=== PATIENT | male | born 1935 | race Caucasian/White ===

== ENCOUNTER → 2017-02-13 | Outpatient (CLI) | payer MEDICARE ==
[~2017-02-13] MED LIST: ARICEPT 5 MG TAB5 MG PO; ARICEPT10 M1 PO; ASPIR 8181 MG PO; ASPIRIN325 PO; ATORVASTATIN CA40 MG PO; CYMBALTA20 MG PO; FLOMAX0.4 MG PO; IRON PO; IRON325 M1 PO; MELATONIN3 MG PO; NAMENDA 10 MG T10 MG PO; NAMENDA XR28 MG PO; PRILOSEC20 MG PO; TOPROL XL50 MG PO; UNKNOWN INHALER INH; VITAMIN B-122500 MCG PO; VITAMIN B-12500 MCG PO; VITAMIN D2000 UNI1 PO; ZOFRAN ODT4 MG PO; ZOLOFT100 MG PO
[2017-02-13 13:23] LABS: % SATURATION 47 % (20-39); IRON 139 ug/dL (65-175); TIBC 298 ug/dL (250-450); UIBC 159 ug/dL
== END ==
LOC: OPONC 12:13
PROVIDERS: Internal Medicine
DX: D64.9 Anemia, unspecified (principal); I25.10 Atherosclerotic heart disease of native coronary artery without angina pectoris; I50.9 Heart failure, unspecified; I25.2 Old myocardial infarction; J44.9 Chronic obstructive pulmonary disease, unspecified; Z86.73 Personal history of transient ischemic attack (TIA), and cerebral infarction without residual deficits
CPT/HCPCS: 91030

== ENCOUNTER 2018-02-11 21:41 | Emergency (ER) | payer MEDICARE ==
[~2018-02-11] VITALS: Ht 170.2 cm; Wt 71.7 kg
--- NOTE | ~2018-02-11 | EKG ---
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: [place] : 1935 Requested By: Nacho Armendariz Order Number: [id number] MD: Jimbo Heredia Measurements Intervals [place] Rate: 105 P: 43 KS: 175 QRS: 62 QRSD: 91 T: 52 QT: 357 QTc: 472 Interpretive Statements Sinus tachycardia Consider left ventricular hypertrophy Compared to ECG 02/12/2017 20:06:52 Sinus arrhythmia no longer present Atrial premature complex(es) no longer present Electronically Signed On 02-15-2018 13:10:18 CDT by Jimbo Heredia [email or web address] <ELECTRONICALLY SIGNED> By: Jimbo Heredia MD, [facility] 02/15/18 1310 02 02 Jimbo Heredia MD, [facility] /EPI
[~2018-02-11 21:41] MED LIST changes: +PRILOSEC 20 MG20 MG PO; -PRILOSEC20 MG PO
[2018-02-11] MEDS ORDERED: DETROL1 MG PO (21:52)
[2018-02-11 22:26] LABS: ABSOLUTE NEUTROPHILS 5.5 thou/uL (1.4-8.2); BASOPHILS 0.4 % (0.0-2.0); EOSINOPHILS 2.9 % (0.0-3.0); HEMATOCRIT 20.7 % (42.0-52.0); HEMOGLOBIN 6.8 gm/dL (14.0-18.0); LYMPHOCYTES 7.4 % (24.0-44.0); MCH 31.1 pg (26.0-34.0); MCHC 33.1 g/dL (28.0-37.0); MCV 93.9 fL (80.0-100.0); MONOCYTES 8.3 % (1.0-8.0); PLATELET COUNT 270 thou/uL (150-400); RDW 16.4 % (10.5-14.5); WBC 6.7 thou/uL (4.0-11.0)
[2018-02-11 22:33] LABS: ANION GAP 8 mmol/L (7-16); BUN 16 mg/dL (7-18); CALCIUM 8.2 mg/dL (8.5-10.1); CHLORIDE 103 mmol/L (98-107); CO2 26 mmol/L (21-32); CREATININE 1.2 mg/dL (0.7-1.3); GLUCOSE 129 mg/dL (74-106); POTASSIUM 4.4 mmol/L (3.5-5.1); SODIUM 137 mmol/L (136-145)
[2018-02-11 22:41] LABS: TROPONIN-I < 0.04 ng/mL (<0.06)
[2018-02-11] MEDS ORDERED: PREDNISONE 20 M20 MG PO (23:35)
[2018-02-11] MEDS ORDERED: PROMETHAZINE/C118 ML PO (23:35)
[2018-02-12 00:07] VITALS: BP 126/76
[2018-02-24] MEDS ORDERED: CVS CALCIUM PO (22:16)
[2018-02-24] MEDS ORDERED: STOOL SOFTENER100 MG PO (22:17)
[2018-02-24] MEDS ORDERED: CYMBALTA30 MG PO (22:20)
== END 2018-02-12 00:08 | disposition home or self-care (01) ==
LOC: ER 21:41
PROVIDERS: Emergency Medicine
DX: J06.9 Acute upper respiratory infection, unspecified (principal); I10 Essential (primary) hypertension; M19.90 Unspecified osteoarthritis, unspecified site; E78.00 Pure hypercholesterolemia, unspecified; Z87.891 Personal history of nicotine dependence; Z88.0 Allergy status to penicillin

== ENCOUNTER → 2018-03-10 | Outpatient (CLI) | payer MEDICARE ==
[~2018-03-10] MED LIST changes: +CVS CALCIUM PO; +CYMBALTA30 MG PO; +DETROL1 MG PO; +PREDNISONE 20 M20 MG PO; +PROMETHAZINE/C118 ML PO; +STOOL SOFTENER100 MG PO
== END | disposition home or self-care (01) ==
LOC: GI 06:46
DX: D50.9 Iron deficiency anemia, unspecified (principal); Z87.19 Personal history of other diseases of the digestive system; Z88.0 Allergy status to penicillin; Z98.890 Other specified postprocedural states; Z79.899 Other long term (current) drug therapy; Z85.46 Personal history of malignant neoplasm of prostate

== ENCOUNTER 2019-01-22 15:12 | Inpatient (IN) | payer MEDICARE ==
[~2019-01-22] VITALS: Ht 177.8 cm; Wt 68.9 kg
--- NOTE | ~2019-01-22 | HC ---
[facility] [place] [address] CONSULTATION Name: DIANA HARRIS Room #: 213-P [facility] IN ..#: [id number] Admission: 01/22/19 ������������������ Attend Phys: Олег Hill MD Discharge: ������������������ Date of : 34 Report #: [id number] THIS REPORT FOR: //name// CC: Олег MAURO unknown DATE OF SERVICE: 01/25/2019 ELECTROPHYSIOLOGY CONSULTATION REASON FOR CONSULTATION: Complete heart block. HISTORY OF PRESENT ILLNESS: The patient is an 84-year-old, with history of coronary artery disease, status post TAVR back in May 2018, who recently started experiencing shortness of breath and lightheadedness. He had recently had his beta vale stopped as an outpatient when he was noted to have some sinus bradycardia, but he returned to clinic with continued fatigue and was noted to be in complete heart block. He was admitted to the hospital for further monitoring. The patient denies any chest pain. He denies presyncope or syncope. PAST MEDICAL HISTORY: 1. Coronary artery disease, status post prior stents to the circumflex and right coronary artery. Most recent cardiac catheterization in 2015 showing patency of all prior stents. 2. Severe aortic stenosis, status post Jak #26 TAVR performed in May 2018 at the [facility]. 3. Dementia. 4. Hypertension. 5. COPD. 6. Metastatic prostate cancer. SOCIAL HISTORY: Quit smoking in 1971. FAMILY HISTORY: Noncontributory. ALLERGIES: INCLUDE PENICILLIN. MEDICATIONS: Include aspirin, Lipitor, calcium, Aricept, Cymbalta, melatonin, omeprazole, tamsulosin, Detrol and amantadine. REVIEW OF SYSTEMS: Twelve-point review of systems was negative other than what I mentioned above. PHYSICAL EXAMINATION: VITAL SIGNS: Temperature is 36.6, pulse 38, respirations 18, blood pressure [facility] [address] [place] [address] CONSULTATION Name: DIANA HARRIS Room #: 213-P [facility] IN [facility]#: [id number] Admission: 01/22/19 ������������������ Attend Phys: Олег Hill MD Discharge: ������������������ Date of : 33 Report #: [id number] 195/61, sats are 98%. GENERAL: Alert and oriented x 3, in no acute distress. HEENT: Oropharynx is clear. Sclerae are anicteric. NECK: Supple with no thyromegaly. HEART: Bradycardic, but regular. CHEST: Clear bilaterally. ABDOMEN: Soft, nontender, nondistended with no hepatosplenomegaly. EXTREMITIES: There is no clubbing, cyanosis or edema. NEUROLOGIC: Cranial nerves 2-12 are intact. LABORATORY DATA: White count 4.8, hemoglobin 8.9, platelets 129. INR 1.0. Chemistry: Sodium 139, potassium 4.5, creatinine 1.3. UA was negative. His 12-lead EKG shows sinus rhythm with complete heart block. He had an echocardiogram performed this hospitalization showing an EF of 55-60% with stable aortic valve findings. Telemetry shows a complete heart block. ASSESSMENT AND PLAN: 1. Symptomatic bradycardia. 2. Third-degree heart block. 3. Coronary artery disease. 4. Aortic stenosis, status post transcatheter aortic valve replacement. 5. Chronic obstructive pulmonary disease. 6. Hypertension. 7. Metastatic prostate cancer. SUMMARY: The patient is an 84-year-old presenting with symptomatic bradycardia secondary to complete heart block. He has been off of beta vale therapy with no improvement. As such, he meets criteria for dual chamber pacemaker implantation. We have discussed the details of the procedure including the risks, which include, but not limited to, bleeding, infection, vascular damage, cardiac perforation and pneumothorax. He and his family understand these risks and are willing to proceed. ��������������������������������������������� ���������������������������������������� By: ��������������������������������������������� [id number] Salvador Thompson MD /nt
--- NOTE | ~2019-01-22 | P ---
[facility] [place] [address] PROCEDURE REPORT Name: DIANA HARRIS Room #: 213-P [facility].#: [id number] Admission: 01/22/19 ������������������ Attend Phys: Олег Hill MD Discharge: 01/26/19 ������������������ Date of : 34 Report #: [id number] THIS REPORT FOR: //name// CC: Олег MAURO unknown PREOPERATIVE DIAGNOSIS: Complete heart block. POSTOPERATIVE DIAGNOSIS: Complete heart block. PROCEDURES PERFORMED: 1. Dual chamber pacemaker implantation, CPT code 35802. 2. Insertion of temporary pacing wire, CPT Code 63019. HISTORY OF PRESENT ILLNESS: The patient is an 84-year-old male with history of coronary artery disease, status post TAVR in 2018, who presented to clinic with symptomatic bradycardia secondary to complete heart block. He had an echocardiogram prior to pacemaker insertion showing EF of 55-60%. He is here for dual chamber pacemaker implantation. ANESTHESIA: The patient underwent MAC anesthesia with no anesthesia-related complications. DESCRIPTION OF PROCEDURE: The patient underwent informed consent. We discussed the details of the procedure including the risks, which include but not limited to bleeding, infection, vascular damage, cardiac perforation and pneumothorax. He and his family understood these risks and were willing to proceed. The patient had an underlying rhythm in the 30s. I therefore decided to place a temporary pacing wire. Obtained access to the right femoral vein x 1 placing a 5-Irish short sheath using the modified Seldinger technique and then placed a 5-Irish pacing catheter into the right ventricle. There was adequate pacing thresholds. I paced the patient from the right ventricle while performing the pacemaker implantation. The patient was brought to the EP laboratory in a fasting and unsedated state. He received IV antibiotics prior to initiation of the procedure. He underwent a venogram showing patency of the left axillary vein. Next, I injected lidocaine below the level of the left clavicle. Incision was made and a pocket was created over the prepectoral fascia and then access was obtained twice to the left axillary vein using the extrathoracic approach. Sheaths were positioned using the modified Seldinger technique. Next, a lead was positioned into the right ventricle with adequate pacing and sensing thresholds. Next, a lead was positioned in the right ventricular apex with adequate pacing and sensing thresholds. We came off pacing from the temporary wire and there was no underlying R waves to be sensed. We continued pacing from the temporary pacing wire. I then placed an atrial lead in the right atrial appendage also with [facility] [address] [place] [address] PROCEDURE REPORT Name: DIANA HARRIS Room #: 213-P [facility] IN ..#: [id number] Admission: 01/22/19 ������������������ Attend Phys: Олег Hill MD Discharge: 01/26/19 ������������������ Date of : 34 Report #: [id number] adequate pacing and sensing thresholds. The leads were sutured to the prepectoral fascia and then the device was connected to the leads, tug test were performed. At this point, I turned off the temporary pacing wire and we paced through the pacemaker. The pacemaker was found to be functioning normally. The pacer was placed into the pocket and I irrigated the pocket with vancomycin and then the pocket was closed in 2 layers, 2-0 for the deep layer, 3-0 for the middle layer. Surgical glue was placed to the outer skin layer. After completing pacemaker insertion, the temporary pacing wire was pulled under fluoroscopy and then the sheath was pulled and hemostasis was obtained. The patient awoke neurologically and hemodynamically intact. No complications and no significant bleeding. The implanted pacemaker was an MRI compatible, [employer] electrophys[employer] technician, model #[id number], serial #[id number]. The atrial lead was a [employer] model #2088TC 52 cm, serial #[id number]. P waves were 2.3 millivolts, pacing impedance was 526 ohms, pacing threshold was 0.5 volts at 0.4 milliseconds. The RV lead was a [employer] model #2088TC 58 cm, serial #[id number] with no underlying R waves, pacing impedance of 460 ohms and pacing threshold 0.75 volts at 0.4 milliseconds. The device was programmed to the DDD 60-120 mode. CONCLUSIONS: 1. Successful dual-chamber pacemaker implantation. 2. Adequate atrial and ventricular pacing and sensing thresholds. 3. Successful temporary pacemaker wire placement. ��������������������������������������������� ���������������������������������������� By: ��������������������������������������������� [id number] Salvador Thompson MD /nt
[2019-01-22 17:37] LABS: HEMATOCRIT 26.4 % (42.0-52.0); HEMOGLOBIN 8.9 gm/dL (14.0-18.0); MCH 30.1 pg (26.0-34.0); MCHC 33.9 g/dL (28.0-37.0); RBC 2.96 mil/uL (4.50-6.00); RDW 15.9 % (10.5-14.5); WBC 5.1 thou/uL (4.0-11.0)
[2019-01-22 17:47] LABS: CALCIUM 8.7 mg/dL (8.5-10.1); CREATININE 1.3 mg/dL (0.7-1.3); POTASSIUM 4.5 mmol/L (3.5-5.1)
[2019-01-22 17:49] LABS: PROTIME 10.7 Seconds (9.3-11.4)
[2019-01-22 17:53] LABS: ALBUMIN 3.9 g/dL (3.4-5.0); TOTAL BILIRUBIN 0.4 mg/dL (<0.1-1.0); TOTAL PROTEIN 6.4 g/dL (6.4-8.2)
--- NOTE | 2019-01-22 18:08 | NUR ---
PT ARRIVED TO UNIT APPROX 1645 DIRECT ADMIT FOR HEART BLOCK. ALERT AND ORIENTED X4. DENIES PAIN AND SOA. HR 30S-40S. ASYMPTOMATIC AT THIS TIME. VS OTHERWISE STABLE. FAMILY AT BEDSIDE. ALL DENY QUESTIONS/CONCERNS REGARDING POC. PIV PLACED. MINDY ROUNDED AND PUT IN MED ORDERS. FALL PRECAUTIONS INITIATED AND PT AGREEABLE. GOOD APPETITE. IVF STARTED. NO DISTRESS NOTED.
[2019-01-22 20:20] VITALS: BP 177/50
[2019-01-22 22:25] LABS: URINE BILIRUBIN NEGATIVE (Negative); URINE BLOOD NEGATIVE (Negative); URINE CLARITY CLEAR; URINE COLOR YELLOW; URINE GLUCOSE-RANDOM* NEGATIVE (Negative); URINE KETONES NEGATIVE (Negative); URINE LEUKOCYTES NEGATIVE (Negative); URINE NITRITE NEGATIVE (Negative); URINE PROTEIN (DIPSTICK) NEGATIVE (Negative); URINE SPECIFIC GRAVITY <= 1.005 (1.005-1.035); URINE UROBILINOGEN 0.2 E.U./dl (0.2-1.0)
[2019-01-23] VITALS (8 sets, daily range): BP systolic 147–191; BP diastolic 38–77
--- NOTE | 2019-01-23 06:32 | NUR ---
ASSESSMET DOCUMENTED. HR 36 ON THE MONITOR, BP STABLE, ASYMPTOMATIC. DENIES PAIN, DIZZINESS. NSS 75 ML/HR INFUSING ON THE LEFT UPPER ARM, INTACT. MAINTAined on fALL PRECAUTION. FF UP POC.
--- NOTE | 2019-01-23 12:50 | EKG ---
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1935 Requested By: Hany Rivera Order Number: [id number] MD: Jimbo Heredia Measurements Intervals [place] Rate: 37 P: 0 HI: QRS: -6 QRSD: 150 T: 99 QT: 551 QTc: 433 Interpretive Statements Complete AV block with wide QRS complex Left bundle branch block Compared to ECG 02/11/2018 22:03:15 AV block, complete (third-degree) now present Left bundle-branch block now present Electronically Signed On 01-23-2019 12:50:07 SEARCH MARKETING ANALYST by Jimbo Heredia [email or web address] ��������������������������������������������� <ELECTRONICALLY SIGNED> ���������������������������������������� By: Jimbo Heredia MD, [facility] ��������������������������������������������� 01/23/19 1250 0653 [id number] Jimbo Heredia MD, [facility] /EPI
--- NOTE | 2019-01-23 14:41 | 2DMMODE ---
[facility] [place] [address] 2 D/M-MODE ECHOCARDIOGRAM Name: DIANA HARRIS Room #: 213-P [facility] IN [facility]#: [id number] ������������� Admission: 01/22/19 ������������� Attend Phys: Олег Hill MD Discharge: ��� ������������� ��� Date of : 33 Date of Service: 01/23/19 1441 �� Report #: [id number] �������� ��������������������������������������������[id number] THIS REPORT FOR: //name// APPROVED REPORT Study performed: 01/23/2019 08:17:07 EXAM: Comprehensive 2D, Doppler, and color-flow Echocardiogram Patient Location: Bedside Room #: 213 Status: routine BSA: 1.85 HR: 36 bpm BP: 147/38 mmHg Rhythm: Irregular Other Information Study Quality: Adequate Indications Dizziness and Vertigo Bradycardia TAVR 2018, CAD, stents, HTN, hypercholesterolemia, COPD, metastatic prostate cancer 2D Dimensions RVDd: 37.50 mm IVSd: 10.18 (7-11mm) LVOT Diam: 19.98 (18-24mm) LVDd: 51.30 mm PWd: 9.90 (7-11mm) Ascending Ao: 38.11 (22-36mm) LVDs: 31.85 (25-40mm) Aortic Root: 24.95 mm IVC: 28.00 mm Volumes Left Atrial Volume (Systole) Single Plane 4CH: 60.24 mL Single Plane 2CH: 77.92 mL LA ESV Index: 42.56 mL/m2 Aortic Valve AoV Peak Grant.: 2.59 m/s AO Peak Gr.: 26.81 mmHg LVOT Max P.00 mmHg AO Mean Gr.: 12.24 mmHg LVOT Mean P.14 mmHg AO V2 Mean: 1.62 m/s LVOT Max V: 1.52 m/s AO V2 VTI: 65.00 cm LVOT Mean V: 0.91 m/s IDANIA (VTI): 1.63 cm2 LVOT V1 VTI: 33.73 cm [facility] [place] [address] 2 D/M-MODE ECHOCARDIOGRAM Name: DIANA HARRIS Room #: 213-P [facility] IN ..#: [id number] ������������� Admission: 01/22/19 ������������� Attend Phys: Олег Hill MD Discharge: ��� ������������� ��� Date of : 33 Date of Service: 01/23/19 1441 �� Report #: [id number] �������� ��������������������������������������������[id number] IDANIA Vmax: 1.84 cm2 AI Vmax: 4.80 m/s SV (LVOT): 105.74 mL AI [place]: 1.79 m/s2 AI PHT: 781.09 ms Mitral Valve E/A Ratio: 0.7 MV Decel. Time: 303.41 ms MV E Max Grant.: 1.36 m/s MV A Grant.: 1.93 m/s MV Max Grant.: 5.49 m/s MV Mean Grant.: 4.63 m/s MV PHT: 87.99 ms IVRT: 129.18 ms Pulmonary Valve PV Peak Grant.: 1.13 m/s PV Peak Gr.: 5.09 mmHg Pulmonary Vein P Vein S: 0.89 m/s P Vein A: 0.33 m/s P Vein D: 0.67 m/s P Vein A Dur.: 230.7 msec P Vein S/D Ratio: 1.33 Tricuspid Valve TR Peak Grant.: 2.79 m/s RAP Estimate: 10.00 mmHg TR Peak Gr.: 31.15 mmHg PA Pressure: 41.00 mmHg Left Ventricle The left ventricle is normal size. Regional wall motion is not well visualized but grossly normal. There is normal left ventricular wall thickness. The left ventricular systolic function is normal. The left ventricular ejection fraction is within the normal range. LVEF is 55-60%. This study is not technically sufficient to allow evaluation of the LV diastolic function. Right Ventricle The right ventricle is normal size. The right ventricular systolic function is normal. Atria Left atrium is mildly dilated. Right atrium is mildly dilated. Aortic Valve TAVR Mild aortic regurgitation. Calculated aortic valve area is 1.8 [facility] [address] [place] [address] 2 D/M-MODE ECHOCARDIOGRAM Name: DIANA HARRIS Room #: 213-P [facility] IN M.R.#: [id number] ������������� Admission: 01/22/19 ������������� Attend Phys: Олег Hill MD Discharge: ��� ������������� ��� Date of : 33 Date of Service: 01/23/19 1441 �� Report #: [id number] �������� ��������������������������������������������[id number] cm2 with maximum pressure gradient of 27 mmHg and mean pressure gradient of 12 mmHg. Mitral Valve Moderate to severe mitral annular calcification. Mild to moderate mitral regurgitation. Possible mild mitral stenosis Tricuspid Valve The tricuspid valve is normal in structure. Moderate tricuspid regurgitation. Estimated PAP of 40 mmHg. Pulmonic Valve Pulmonic valve is not well visualized. There is no pulmonic valvular regurgitation. Great Vessels The aortic root is normal in size. The ascending aorta is mildly dilated measuring 3.8 cm. IVC is dilated and collapses >50% with inspiration. Pericardium There is no pericardial effusion. <Conclusion> The left ventricular systolic function is normal. Regional wall motion is not well visualized but grossly normal. LVEF is 55-60%. Both atria are mildly dilated. TAVR. Calculated aortic valve area is 1.8 cm2 with maximum pressure gradient of 27 mmHg and mean pressure gradient of 12 mmHg. Trace aortic regurgitation. Moderate to severe mitral annular calcification. Mild to moderate mitral regurgitation. Possible mild mitral stenosis Moderate tricuspid regurgitation. Estimated pulmonary artery pressure of 40 mmHg. There is no pericardial effusion. ��������������������������������������������� <ELECTRONICALLY SIGNED> ���������������������������������������� By: Jimbo Heredia MD, FACC ��������������������������������������������� 01/23/19 144 [id number] Jimbo Heredia MD, FACC /INF
--- NOTE | 2019-01-23 21:12 | NUR ---
PATIENT ALERT AND ORIENTED AND PLEASANT. PATIENT STATES OCCASSIONAL DIZZINESS. INSTRUCTED PATIENT TO CALL FOR HELP BEFORE GETTING OUT OF BED. SPOUSE AT BEDSIDE. SPOUSE AND DAUGHTER WOULD LIKE TO KNOW SPECIFIC TIME FOR SURGERY.
--- NOTE | 2019-01-24 00:12 | NUR ---
NOTIFIED BOTH NURSE PRACTITONER (MIKKI) AND CARDIOLOGY (DR WALKER) ABOUT ELEVATED BLOOD PRESSURE, NO NEW ORDERS RECEIVED, PROVIDERS AWARE.
[2019-01-24 04:23] VITALS: BP 160/38
--- NOTE | 2019-01-24 05:46 | NUR ---
ASSUMED PT CARE AT 1900 WITH NO SIGN OF DISTRESS NOTED IN PT. PT IS ALERT AND ORIENTED. PT IS STABLE AND LAYING IN BED, SCHEDULED MEDS ADMINISTERED TO PT. PT IS STILL BRADYCARDIC, WITH ELEVATED BLOOD PRESSURE NOTED THROUGH THE NIGHT. PHYSICIAN NOIFIED, PT IS STABLE, DENIES ANY FURTHER NEEDS AT THIS TIME.
[2019-01-24 07:48] VITALS: BP 168/55
[2019-01-24 09:52] VITALS: BP 168/55
[2019-01-24 11:25] VITALS: BP 163/46
[2019-01-24 16:02] VITALS: BP 173/62
--- NOTE | 2019-01-24 19:51 | NUR ---
ASSUMED CARE OF PT AT SHIFT CHANGE. ASSESSMENTS CHARTED. MEDS GIVEN PER JAN. VSS, BP ELEVATED--NO NEW ORDERS PER CARDIOLOGY. PT ALERT AND ORIENTED, NO C/O PAIN, DENIES CHEST PAIN. UP STANDBY ASSIST, CALLS APPROPRITATELY WITH NEEDS. O2 SATS WNL ON ROOM AIR. NO S/SX OF CARDIAC OR RESP DISTRESS NOTED. PLAN IS FOR PT TO HAVE PACEMAKER IN AM. PT AND FAMILY AWARE. FAMILY AT BEDSIDE. DENIES CONCERNS AT THIS TIME. WILL CONTINUE TO MONITOR AND FOLLOW POC.
[2019-01-24 20:10] VITALS: BP 173/60
[2019-01-25] VITALS (10 sets, daily range): BP systolic 163–195; BP diastolic 42–77
--- NOTE | 2019-01-25 03:01 | NUR ---
ASSUMED CARE 1899. VSS. HEART BLOCK, BBB. ASSESSMENT CHARTED. PT DENIES CP, SOA, DIZZINESS. CARDIO AWARE OF ELEVATED BP, NIGHT MANAGER SERVICING NOTIFIED WELL, NO TX UNTIL PACER. NPO AT MIDNIGHT. FLUIDS RUNNING PER EMAR. PLAN FOR LABS AND PACE MAKER THIS AM. FAMILY HERE AT START OF SHIFT STATED THEY WILL BE BACK EARLY THIS AM. WILL CONTINUE TO MONITOR AND WITH POC.
[2019-01-25 03:49] LABS: HEMATOCRIT 26.4 % (42.0-52.0); HEMOGLOBIN 8.9 gm/dL (14.0-18.0); MCH 29.9 pg (26.0-34.0); MCHC 33.6 g/dL (28.0-37.0); MCV 89.1 fL (80.0-100.0); RBC 2.97 mil/uL (4.50-6.00); RDW 15.5 % (10.5-14.5); WBC 4.8 thou/uL (4.0-11.0)
--- NOTE | 2019-01-25 19:11 | NUR ---
PATIENT BACK FROM SURGERY AND DENIES PAIN. SURGICAL SITES TO LEFT CHEST AND RIGHT GROIN APPEAR INTACT AND NO DRAINAGE. HE IS PLEASATN. RESTING IN BED AT THIS TIME. WILL CONT WITH PLAN OF CARE.
[2019-01-26] VITALS (7 sets, daily range): BP systolic 169–184; BP diastolic 71–81
--- NOTE | 2019-01-26 02:50 | NUR ---
ASSUMED CARE 1899. VSS. ASSESSMENT CHARTED. PT DENIES PAIN OR CONCERN. LUE IMMOBILIZER IN PLACE. R GROIN CDI. L CHEST PACE MAKER INCISION CLEAN INTACT- PT KEPT TOUCHING AND RUBBING SITE STATED "FEELS LUMP" GAUZE PLACED AND PT EDUCATED NOT TOUCH SITE AND THATS THE PACE MAKER THAT IS RAISED. EDUCATED TO NOT MOVE LEFT ARM AND TO CALL US FOR ANY HELP. ABX PER EMAR. BP ELVATED STILL AFTER PRN BP MEDS PER EMAR, CIRCULATION ASSISTANT NOTIFIED ORDERS GIVEN. PLAN FOR CXR THIS AM. WILL CONTINUE TO MONITOR AND WITH POC.
[2019-01-26] MEDS ORDERED: METOPROLOL SUCC50 MG PO (09:01)
--- NOTE | 2019-01-26 16:21 | NUR ---
PT CARE ASSUMED APPROX 0700. PT ALERT AND ORIENTED X4. DENIES PAIN AND SOA. BP ELEVATED THIS AM. EP BARREL LATHE OPERATOR INSIDE RESTARTED PT ON BB AND BP WNL AT THIS TIME. VSS. UP WITH WALKER AND SBA. LEFT CHEST INCISION C/D/I. PT TO DISCHARGE AT THIS TIME. DISCHARGE REVIEWED WITH PT, SPOUSE AND CHILD. ALL DENY QUESTIONS AND CONCERNS REGARDING MEDS, F/U APPTS, IMMOBILIZER, ACTIVITY LEVEL/RESTRICTIONS, INCISION CARE, POST PPM INSTRUCTIONS, DIET, LABS AND GENERAL POST HOSPITAL CARE.IV OUT, TELE BOX OFF. NO DISTRESS NOTED. STAFF TO ESCORT PT OUT TIMELY.
== END 2019-01-26 16:00 | disposition home or self-care (01) | DRG 244 ==
LOC: 2N 15:12 → ENTRNSPT 01-26 16:20
PROVIDERS: Hospitalist; Internal Medicine; ADMIT Hospitalist
PROC: 5A1223Z Performance of Cardiac Pacing, Continuous (ICD-10-PCS; principal; 2019-01-25)
PROC: 0JH606Z Insertion of Pacemaker, Dual Chamber into Chest Subcutaneous Tissue and Fascia, Open Approach (ICD-10-PCS; principal; 2019-01-25)
PROC: 02HK3JZ Insertion of Pacemaker Lead into Right Ventricle, Percutaneous Approach (ICD-10-PCS; principal; 2019-01-25)
PROC: 02H63JZ Insertion of Pacemaker Lead into Right Atrium, Percutaneous Approach (ICD-10-PCS; principal; 2019-01-25)
DX: I44.2 Atrioventricular block, complete (principal); I25.10 Atherosclerotic heart disease of native coronary artery without angina pectoris; I35.0 Nonrheumatic aortic (valve) stenosis; F03.90 Unspecified dementia, unspecified severity, without behavioral disturbance, psychotic disturbance, mood disturbance, and anxiety; D64.9 Anemia, unspecified; D69.6 Thrombocytopenia, unspecified; I10 Essential (primary) hypertension; J44.9 Chronic obstructive pulmonary disease, unspecified; F32.9 Major depressive disorder, single episode, unspecified; M19.90 Unspecified osteoarthritis, unspecified site; E78.00 Pure hypercholesterolemia, unspecified; Z98.1 Arthrodesis status; Z87.81 Personal history of (healed) traumatic fracture; Z85.46 Personal history of malignant neoplasm of prostate; Z90.49 Acquired absence of other specified parts of digestive tract; Z95.2 Presence of prosthetic heart valve; Z95.5 Presence of coronary angioplasty implant and graft; Z87.891 Personal history of nicotine dependence; Z79.82 Long term (current) use of aspirin; Z79.899 Other long term (current) drug therapy; Z88.0 Allergy status to penicillin
CPT/HCPCS: 10081; 10797; 62110; 62900; 70005

== ENCOUNTER 2019-04-03 18:41 | Inpatient (IN) | payer MEDICARE ==
[~2019-04-03] VITALS: Ht 172.7 cm; Wt 74.5 kg
--- NOTE | ~2019-04-03 | HC ---
[facility] [place] [address] CONSULTATION Name: DIANA HARRIS Room #: 204-P [facility] IN ..#: [id number] Admission: 04/03/19 ������������������ Attend Phys: Henrry Dinh MD Discharge: ������������������ Date of : 33 Report #: [id number] THIS REPORT FOR: //name// CC: FAM unknown Henrry Dinh DATE OF SERVICE: 04/14/2019 HISTORY OF PRESENT ILLNESS: The patient is an 84-year-old white male who was admitted; however, after having a fall at home. He was thought to have a concussion. He has been evaluated and noted to have acute renal insufficiency secondary to Toradol and hypertension and acute encephalopathy with baseline dementia, likely secondary to colitis and urinary tract infection. He was diagnosed with C. diff colitis, GI consulted. He has been on oral vancomycin. He also has an Enterococcus faecalis urinary tract infection for which he has been on levofloxacin. He has had some protein-calorie malnutrition. We are seeing him in Rehabilitation Medicine consultation. PAST MEDICAL HISTORY: Does include mild dementia. He has a history of hypertension, hypercholesterolemia, cardiac catheterization with stent x 2, stage IV prostate cancer, two vertebrae have been fused, rib fractures. HABITS: Tobacco abuse, 1.5 packs per day for 20 years, quit less than or equal to a year ago. Alcohol, past use daily, 6-pack. SOCIAL HISTORY: Lives in a house with his . Did not utilize gait aids. REVIEW OF SYSTEMS: Some frustration with current status. Notes he is tired. No complaints of chest pain, shortness of breath, abdominal discomfort. No focal extremity pain complaints were verbalized. No fever or chills. He thinks he is eating a little better. PHYSICAL EXAMINATION: GENERAL: An 84-year-old slender white male, in no obvious distress. VITAL SIGNS: Last recorded temperature 99.8, pulse 105, respirations 20, blood pressure is 147/78. He is alert. HEENT: Appeared to be benign. NEUROLOGIC: Cranial nerves grossly intact. Facies are symmetric. Functional range of motion of both upper extremities. Strength is grade 4-/5. DTRs are trace to 1. Lower extremities, no focal calf swelling, functional range of motion, strength is grade 4-/5. He is min assist with sit to stand. Gait 20 feet mod assist front-wheeled walker. Lower extremity dressing is mod assist. ASSESSMENT: An 84-year-old white male with the following problem list: 1. Encephalopathy superimposed on baseline dementia, likely secondary to colitis [place] [address] CONSULTATION Name: DIANA HARRIS Vee Room #: 204-P [facility] IN ..#: [id number] Admission: 04/03/19 ������������������ Attend Phys: Henrry Dinh MD Discharge: ������������������ Date of : 33 Report #: [id number] 2. Clostridium difficile colitis. 3. Enterococcus faecalis urinary tract infection. 4. Acute renal insufficiency, noted to be secondary to Toradol and hypertension. 5. Electrolyte abnormalities. 6. Iron deficiency anemia. 7. Laceration of the head, post fall. PLAN: He is in therapies as far as functional mobility issues. Case management is involved and note that the plans are underway for longterm facility discharge. We will be glad to follow along with you while the patient is here at [facility]. ��������������������������������������������� ���������������������������������������� By: ��������������������������������������������� 0918 1320 Bong Snyder MD /nt
[~2019-04-03 18:41] MED LIST changes: +METOPROLOL SUCC50 MG PO
[2019-04-03 18:42] VITALS: BP 119/73
[2019-04-03 19:26] LABS: ABSOLUTE NEUTROPHILS 8.4 thou/uL (1.4-8.2); BASOPHILS 0.6 % (0.0-2.0); HEMATOCRIT 28.9 % (42.0-52.0); HEMOGLOBIN 9.8 gm/dL (14.0-18.0); LYMPHOCYTES 7.2 % (24.0-44.0); MCH 29.7 pg (26.0-34.0); MCHC 33.9 g/dL (28.0-37.0); MCV 87.6 fL (80.0-100.0); PLATELET COUNT 181 thou/uL (150-400); POLYS 84.2 % (36.0-66.0); RDW 14.7 % (10.5-14.5)
[2019-04-03 19:34] LABS: ANION GAP 9 mmol/L (7-16); BUN 16 mg/dL (7-18); CALCIUM 8.8 mg/dL (8.5-10.1); CHLORIDE 101 mmol/L (98-107); CO2 26 mmol/L (21-32); CREATININE 1.3 mg/dL (0.7-1.3); GLUCOSE 125 mg/dL (74-106); POTASSIUM 4.4 mmol/L (3.5-5.1); SODIUM 136 mmol/L (136-145)
[2019-04-03 19:44] LABS: SGOT 22 U/L (15-37); SGPT 30 U/L (30-65); TOTAL BILIRUBIN 0.6 mg/dL (<0.1-1.0); TOTAL PROTEIN 7.2 g/dL (6.4-8.2); TROPONIN-I <0.06 ng/mL (<0.06)
[2019-04-03 21:50] LABS: URINE BILIRUBIN NEGATIVE (Negative); URINE BLOOD NEGATIVE (Negative); URINE CLARITY CLEAR; URINE COLOR YELLOW; URINE GLUCOSE-RANDOM* NEGATIVE (Negative); URINE KETONES NEGATIVE (Negative); URINE LEUKOCYTES-REFLEX NEGATIVE (Negative); URINE NITRITE-REFLEX NEGATIVE (Negative); URINE PROTEIN (DIPSTICK) 1+ (Negative); URINE UROBILINOGEN 0.2 E.U./dl (0.2-1.0)
[2019-04-03 22:05] LABS: BACTERIA-REFLEX 1-9 Few /HPF (None Seen); CRYSTALS None Seen /LPF (None Seen); HYALINE CASTS 0-3 Few /LPF (None Seen); MUCUS 0-3 Light strn/LPF (None Seen); SQUAMOUS 0-3 Few /LPF (0-3); URINE RBC 3-10 Few /HPF (0-2); URINE WBC-REFLEX 6-15 Few /HPF (0-5)
[2019-04-03 23:10] VITALS: BP 137/67
[2019-04-03 23:26] VITALS: BP 146/64
[2019-04-03 23:45] VITALS: BP 128/64
--- NOTE | 2019-04-04 00:58 | NUR ---
Pt came up from ED approx 2330. Alert and oriented to self only. Family at bedside, helped answer pt admission questions. Admission completed. Denies pain. Scab on right side of head due to fall. Has pacemaker. High fall risk. Fall precautions in place. Will continue to monitor.
[2019-04-04 04:17] VITALS: BP 107/50
[2019-04-04 06:56] VITALS: BP 146/62
--- NOTE | 2019-04-04 13:43 | NUR ---
PT A&OX3-4, IV INTACT L UPPER ARM. DENIES ANY PAIN AT THIS TIME. SPOUSE AT BEDSISDE. BED ALARM ON, USING URINAL. WILL CONT TO MONITOR.
[2019-04-04 16:23] VITALS: BP 118/56
[2019-04-04 19:39] LABS: CALCIUM 8.7 mg/dL (8.5-10.1); CREATININE 1.6 mg/dL (0.7-1.3); POTASSIUM 3.8 mmol/L (3.5-5.1)
[2019-04-04 19:41] LABS: ABSOLUTE NEUTROPHILS 9.9 thou/uL (1.4-8.2); BASOPHILS 0.1 % (0.0-2.0); HEMATOCRIT 28.2 % (42.0-52.0); HEMOGLOBIN 9.4 gm/dL (14.0-18.0); LYMPHOCYTES 8.7 % (24.0-44.0); MCH 29.7 pg (26.0-34.0); MCHC 33.5 g/dL (28.0-37.0); MCV 88.7 fL (80.0-100.0); MONOCYTES 8.2 % (1.0-8.0); PLATELET COUNT 170 thou/uL (150-400); RBC 3.18 mil/uL (4.50-6.00); RDW 15.1 % (10.5-14.5)
[2019-04-04 20:13] LABS: TSH 1.589 uIU/mL (0.358-3.740)
[2019-04-04 22:17] VITALS: BP 144/57
--- NOTE | 2019-04-05 04:43 | NUR ---
PT ALERT WITH FORGETFULNESS. BEEN FEBRILE, TYLENOL GIVEN. PT HAS TREMORS/BUE. PLACED ON 02/2L/NC FOR COMFORT.USES URINAL.APPEARS LETHARGIC. AWAITING BCX RESULTS. THIS AM, PT C/O OF PAINFUL HERNIA-NURSE ASESSED R SMALL INGUINAL HERNIA. TYLENOL GIVEN. PT ALSO HAD THE URGE TO HAVE A BM, PLACED ON BEDPAN WITH NO RESULTS. PT APPEARS PALE AND LETHARGIC. WILL CONTINUE TO CLOSELY MONITOR.
--- NOTE | 2019-04-05 04:49 | NUR ---
BLADDER SCAN AT 0415 WITH 161CC PVR.
[2019-04-05 05:35] VITALS: BP 124/59
--- NOTE | 2019-04-05 08:42 | EKG ---
[address] [address] ELECTROCARDIOGRAM REPORT Name: DIANA HARRIS Room #: 419-P ADM IN .R.#: [id number] ������������������ Admission: 04/03/19 ������������������ Attend Phys: Henrry Dinh MD Discharge: ������������������ Date of : 34 Report #: [id number] ����������������������������������������������������������������� [id number] THIS REPORT FOR: //name// [facility] ED Test Date: 2019-04-03 Test Time: 19:28:57 Pat Name: DIANA HARRIS Department: Room: [facility] Gender: M Counter Caser: [id number] : 1935 Requested By: Ami Schultz Order Number: [id number] MD: Jimbo Heredia Measurements Intervals [place] Rate: 87 P: 45 UT: 47 QRS: -51 QRSD: 117 T: 109 QT: 368 QTc: 443 Interpretive Statements Atrial-sensed ventricular-paced rhythm No further analysis attempted due to paced rhythm Compared to ECG 01/23/2019 06:53:50 Ventricular pacing is now present Electronically Signed On 04-05-2019 8:41:53 CDT by Jimbo Heredia [email or web address] ��������������������������������������������� <ELECTRONICALLY SIGNED> ���������������������������������������� By: Jimbo Heredia MD, [facility] ��������������������������������������������� 04/05/19 0841 1928 1928 Jimbo Heredia MD, [facility] /EPI
[2019-04-05 08:51] VITALS: BP 116/50
--- NOTE | 2019-04-05 13:05 | NUR ---
INITIAL ASSESSMENT: Pt evaluated for d/c planning needs. Reviewed chart and spoke with nurse, pt, spouse of 65 years and granddaughter. Pt is alert and oriented. Pt lives in house with spouse and was independent with ADL's prior to admission. Pt at times uses 's walker, but does not have one of his own. Pt has had [facility] in the past. Pt plans on returning home on d/c from hospital. Will remain available to assist as needed.
[2019-04-05 14:00] VITALS: BP 139/69
--- NOTE | 2019-04-05 14:28 | NUR ---
[facility] CALLED AT 1402 FOR ACUTE GROIN PAIN AND TACHYCARDIA. DR GUILLEN AT BEDSIDE FOR RR, ORDER FOR BYERS PLACEMENT R/T PT HAS NOT URINATED SINCE LAST NIGHT. ALSO ORDERED MORPHINE FOR PAIN. PT TACHY IN 110'S TO 130'S WITH TREMORS. SEE RR FLOWSHEET FOR VS AND POC.
[2019-04-05 15:36] LABS: URINE BILIRUBIN NEGATIVE (Negative); URINE BLOOD 2+ (Negative); URINE CLARITY SL CLOUDY; URINE COLOR YELLOW; URINE GLUCOSE-RANDOM* NEGATIVE (Negative); URINE KETONES NEGATIVE (Negative); URINE LEUKOCYTES NEGATIVE (Negative); URINE NITRITE NEGATIVE (Negative); URINE PROTEIN (DIPSTICK) 1+ (Negative); URINE SPECIFIC GRAVITY 1.025 (1.005-1.035); URINE UROBILINOGEN 0.2 E.U./dl (0.2-1.0)
[2019-04-05 15:55] LABS: AMORPHOUS URATES Many /LPF (None Seen); BACTERIA None Seen /HPF (None Seen); COARSE GRANULAR CASTS 0-3 Few /LPF (None Seen); HYALINE CASTS 0-3 Few /LPF (None Seen); SQUAMOUS 0-3 Few /LPF (0-3); URINE RBC 3-10 Few /HPF (0-2); URINE WBC 0-5 Rare /HPF (0-5)
[2019-04-05 20:10] VITALS: BP 131/61
[2019-04-06] VITALS: BP 111/55
[2019-04-06 03:37] VITALS: BP 110/52
--- NOTE | 2019-04-06 03:49 | NUR ---
ASSUMED CARE AT START OF SHIFT PT TEMP AVERAGE 99.8F DENIES PAIN AFTER TYLENOL GIVEN, DISCUSSED PLAN OF CARE WITH PT AND SON BOTH VERBALIIZED UMDERSTANDING AND AGREEABLE PT RESTED WELL THROUGHOUT HOURLY ROUNDS WILL CONINTUE TO MONITOR TEMP AND REPORT ABNORMAL AND CHANGES
[2019-04-06 05:31] LABS: ALBUMIN 3.1 g/dL (3.4-5.0); CREATININE 1.5 mg/dL (0.7-1.3); PHOSPHORUS 3.5 mg/dL (2.5-4.9); POTASSIUM 3.3 mmol/L (3.5-5.1)
[2019-04-06 07:30] VITALS: BP 112/57
[2019-04-06] MEDS ORDERED: CEFUROXIME500 MG PO (10:02)
[2019-04-06] MEDS ORDERED: CYCLOBENZAPRINE5 MG PO (10:02)
[2019-04-06] MEDS ORDERED: ACETAMINOPHEN325 M1 PO (10:02)
[2019-04-06] MEDS ORDERED: PHENAZOPYRIDIN100 M1 PO (10:03)
[2019-04-06 11:06] VITALS: BP 112/57
--- NOTE | 2019-04-06 12:09 | NUR ---
Assumed pt care at 7am.Assessment completed.vss.Assisted pt with tray set up at breakfast.Pt has good appetite and tolerated am meds.Dr Son here,dc order noted.Pt family here shortly before noon and requested to talk to Doctor. Dr Son paged and he came to talk to pt family.Pt wanted pt stay for more days in hospital.repair manager will assist family in selecting snf and pt will dc in am to snf.Will continue to monitor.
--- NOTE | 2019-04-06 12:33 | NUR ---
Received order from physician to arrange home health. Then physician said that pt will need to go to SNF. Gave SNF list to pt, spouse and daughter. Dtr said that physician recommended patient go to [facility]. Called [facility] and they are not in network with insurance. Dtr said she would do some checking and decide where she wants pt to go. Gave daughter Medicare website information to check ratings. Will remain available to assist as needed and make referrals
--- NOTE | 2019-04-06 14:44 | NUR ---
JOSIE BASHIR, IT ASSISTANT WITH DR. AMARO, ATTEMPTED TO SEE PATIENT THIS DATE FOR ACUTE REHAB CONSULT. JOSIE WAS TOLD THAT PLAN WAS FOR PATIENT TO GO TO SKILLED AND THAT NO CONSULT WAS NEEDED AT THIS TIME.
[2019-04-06 16:30] VITALS: BP 114/52
[2019-04-06 19:10] LABS: SYPHILIS AB Negative (Negative)
[2019-04-06 21:56] VITALS: BP 109/56
--- NOTE | 2019-04-07 03:09 | NUR ---
ASSUMED CARE FROM PREVIOUS SHIFT PT NOTED TO HAVE CONFUSION, PT ATTEMPTED TO GET OUT OF BED X2 BED ALARM IN PLACE, DENIES PAIN PT REPOSTIONED EVERY 2 HOURS, INCONTINENT OF LARGE AMNOUNT OF FOUL SMELLING URINE. TYLENOL GIVEN PO FOR TEMP , RESTED WELL THROUGHOUT HOURLY ROUNDS, WILL CONINTUE WITH CURRENT PLAN OF CARE.
--- NOTE | 2019-04-07 03:18 | NUR ---
ASSUMED CARE AT START OF SHIFT PT HAVE FAMILY AT BEDSIDE PT UP AMBUATED IN HALLWAY WITH WALKER AND SON AT SIDE TOLERATED WELL, WHEN RETURNED TO BED PT C/O GROIN PAIN ,MORPHIN IV GIVEN ORDERED, HS ,EDICATIONALSO TAKEN, PT THEM RESTED WELL THROUGHOUT HOURLY ROUNDS, WILL CONTINUE WITH CURRENT PLAN OF CARE.
[2019-04-07 05:23] VITALS: BP 123/61
[2019-04-07 07:58] VITALS: BP 127/68
--- NOTE | 2019-04-07 14:09 | NUR ---
Spoke with health services coordinator at [facility]. They have clinically accepted patient and are seeking insurance authorization. SPoke with pt, spouse and daughter. All are in agreement with plans. Physician said pt may be medically ready for d/c on . Will remain available to assist as needed.
--- NOTE | 2019-04-07 16:23 | NUR ---
FAXED REFERRAL TO [facility] SPOKE WITH MARY KAY AND SHE RECEIVED REFERRAL AND CAN ACCEPT PT CLINICALLY AND WILL SUBMIT FOR AUTH. DCP TO FOLLOW.
[2019-04-07 16:42] VITALS: BP 98/49
[2019-04-07 19:20] VITALS: BP 90/42
--- NOTE | 2019-04-07 19:29 | NUR ---
Assessmnet completed .vss. pt in bed most of the time today sleeping on and off.Assisted with tray set up at breakfast.Fair appetite.C/o abdominal and groin pain rated 10/10.Morphine ivp given as ordered with relief.Pt slept till noon.When pt family came to visit,they wanted to know why pt was sleepy.Rn informed them it was related to pain shot.Pt able to recognized dtr and when fully awake.Later this afternoon,pt dtr requested for pain shot since tramadol wasn't strong enough for pt pain.Dr Son notified and order noted. F����leet enema given x1 with result.Pt family has been in the room since noon assisting with care.Report off to noc rn.
[2019-04-08] VITALS (8 sets, daily range): BP systolic 93–127; BP diastolic 45–93
--- NOTE | 2019-04-08 01:14 | NUR ---
PT TRANSFERED FROM [facility] TO 213 D/T INCREASED LETHARGY AND ALTERED MENTAL STATUS.VSS,PT FEBRILE WITH TEMP OF 103.1 AXILLARY.BLOOD PRESSURE 118/93(101) PT HAD RECEIVED TYLENOL PRIOR TO TRANSFER,ALSO HAD CTA OF THE HEAD AND CXRAY,AWAITING RESULTS.CONTACTED LABS TO DRAW LACTIC ACID,BMP AND CMP AWAITING FOR THE RESULTS.SECURED ENTRANCE MONITOR CONTACTED REGARDING ORDERS,INSTRUCTED TO WAIT FOR THE LABS RESULTS.FAMILY AT BEDSIDE.KVO.PT ASSESSMENT COMPLETED,PT VERY SWEATY,BLOOD GLUCOSE CHECK WNL.VPACED ON MONITOR.ZEESHAN MOSS.FAMILY DENIES CONCERNS AT THIS TIME.WILL CONT MONITOR PER POC.
[2019-04-08 01:40] LABS: ABSOLUTE NEUTROPHILS 10.4 thou/uL (1.4-8.2); HEMOGLOBIN 7.7 gm/dL (14.0-18.0); LYMPHOCYTES 1.9 % (24.0-44.0)
[2019-04-08 01:41] LABS: BASOPHILS 0.1 % (0.0-2.0); EOSINOPHILS 0.1 % (0.0-3.0); HEMATOCRIT 23.2 % (42.0-52.0); MCH 29.2 pg (26.0-34.0); MCHC 33.1 g/dL (28.0-37.0); MCV 88.1 fL (80.0-100.0); MONOCYTES 5.9 % (1.0-8.0); PLATELET COUNT 173 thou/uL (150-400); RBC 2.63 mil/uL (4.50-6.00); RDW 14.9 % (10.5-14.5); WBC 11.3 thou/uL (4.0-11.0)
[2019-04-08 01:44] LABS: ALBUMIN 2.6 g/dL (3.4-5.0); CALCIUM 7.3 mg/dL (8.5-10.1); POTASSIUM 3.6 mmol/L (3.5-5.1); TOTAL BILIRUBIN 0.3 mg/dL (<0.1-1.0)
--- NOTE | 2019-04-08 03:25 | NUR ---
ASSUMED PT CARE 1900. PT ALERT AND ORIENTED X4. PT BLOOD PRESSURE LOW, CALLED DR. DELVALLE PER PT FAMILY REQUEST, ORDERS RECEIVED FOR BOLUS AND TO START MAINTENANCE FLUIDS. REASSESSMENT OF BP FOLLOWING BOLUS WAS GOOD. PT REQUESTED GETTING UP TO BSC. VSS AT THIS POINT. PT UP TO BSC, TOLERATED ACTRIVITY WELL. PT SPENT SEVERAL MINUTES HAVING BM. FAMILY REQUESTED PAIN MEDICINE FOR PT. UPON ASSESSMENT PT WAS SHAKING, UNABLE TO TELL NURSE WHERE THE PAIN WAS OR GIVE A RATING. FURTHER ASSESSMENT INDICATED A CHANGE IN MENTAL STATUS. PT UNABLE TO IDENTIFY HIS NAME, WHERE HE WAS OR WHY, WAS NOT ALERT TO TIME EITHER. PT WAS NOT MAKING SENSE WHEN SPEAKING. VS AT THIS TIME WERE TAKEN, PT SPIKED 103.5 TEMP, SEE EMAR. O2 IN HIGH 80'S, NURSE APPLIED 2L O2 OXYGEN SAT RETURNED TO 92%. PT RETURNED TO BED. NOTIFIED DR. DELVALLE OF PT STATUS CHANGE ORDERS RECEIVED FOR TRANSFER AND AUDIOMETRIST REQUESTED TO COME FOR ASSESSMENT. REPORT CALLED TO RECEIVING NURSE.
[2019-04-08 05:43] LABS: HEMATOCRIT 22.6 % (42.0-52.0); HEMOGLOBIN 7.6 gm/dL (14.0-18.0)
[2019-04-08 06:01] LABS: % SATURATION 8 % (20-39); IRON 10 ug/dL (65-175); TIBC 132 ug/dL (250-450)
[2019-04-08 06:28] LABS: FOLIC ACID 19.3 ng/mL (8.6-58.9)
--- NOTE | 2019-04-08 06:48 | NUR ---
PT RESTING IN NO ACUTE DISTRESS AT THIS TIME.VSS.BLOOD PRESSURE IMPROVING AFTER BOLUS WAS GIVEN,URINE UO STILL POOR.DR BRYAN CALLED THIS AM TO F/U,REQUESTED FOR US OF ABDOMEN,NEPHOLOGY CONSULTED.PAIN MEDS PER ORDERS,PT A/OX2.WILL CONT TO MONITOR PER POC.
--- NOTE | 2019-04-08 14:19 | NUR ---
FAXED CLINICAL UPDATE TO [facility] LEFT G WITH DEVYN THAT PT. WILL BE HERE ALL WEEKEND. DCP TO FOLLOW.
--- NOTE | 2019-04-08 19:58 | NUR ---
ASSUMED CARE OF PATIENT AT 0700. PATIENT'S FAMILY IS AT THE BEDSIDE AND ASKED MANY QUESTIONS TODAY, ALL APPROPRIATE CONCERNS. PATIENT IS A&O TO PERSON AND PLACE. COMPLAINS OF LEFT GROIN AND LLQ ABDOMINAL PAIN THAT IS BURNING IN NATURE AT 10/10. PATIENT TAKING TRAMADOL WITH SIGNIFICANT RELIEF BUT TEMPORARY. PAIN MEDICATION CHANGED TO FENTANYL 25, WHICH ALSO OFFERED SIGNIFICANT RELIEF BUT ALSO ONLY 3 HOURS. PAIN MEDICATION WAS CHANGED AT SHIFT CHANGE TO FENTANYL 50. DR. GUILLEN CALLED AND ASKED THAT WE WATCH THE LEVEL OF LETHARGY, INFORMATION PASSED ALONG TO THE NIGHT NURSE. PATIENT UNDERWENT AN CXR, US AND CT ABD/PELVIS. PATIENT STARTED ON FLAGYL IV. PATIENT RESTING COMFORTABLY IN BED WITH FAMILY AT THE BEDSIDE. NEPH AND GI CONSULTED. PATIENT TO CONTINUE WITH POC.
[2019-04-09 03:50] VITALS: BP 121/63
--- NOTE | 2019-04-09 04:39 | NUR ---
RECEIVED PT'S CARE AT 1915; FAMILY AT THE BED SIDE; PT. SLEEPING; DURING ASSESSMENT PT. ALERT TO PLACE, TIME, PERSON, NOT SITUATION; ST. PAIN 08/10; REFUSED PRN PAIN MEDICATION; EDUCATED ABOUT PAIN MANAGEMENT; REQUESTED PRN PAIN MEDICATION GIVEN; DURING PAIN RE-ASSESSMENT C/O PAIN 09/09; MUNITIONS HANDLER SUPERVISOR NOTIFIED; ORDERS RECEIVED; PT. FELT ASLEEP; AT 0220 PT. C/O PAIN; 09/09; PRN PAIN MEDICATION; DURING RE-ASSESSMENT PT. ST DECREASE PAIN; HAD A LARGE LIQUID DARK GREEN STOOL; MALODOUROUS; MUNITIONS HANDLER SUPERVISOR NOTIFIED; ORDERS RECEIVED; THROUGH THE NIGHT TEMPERATURE REMAINED BETWEEN 99F TO 102F; PRN ACETAMINOPHEN GIVEN; HEART RHYTHM ON THE LATE 110'S; PACED; MONITORING Q1H; ASSESSMENT CHARGED; FOLLOWING POC; WILL PASS ON REPORT.
[2019-04-09 05:33] LABS: HEMATOCRIT 24.8 % (42.0-52.0); HEMOGLOBIN 8.3 gm/dL (14.0-18.0); MCH 29.6 pg (26.0-34.0); MCHC 33.6 g/dL (28.0-37.0); RBC 2.82 mil/uL (4.50-6.00); RDW 15.2 % (10.5-14.5); WBC 13.6 thou/uL (4.0-11.0)
[2019-04-09 05:51] LABS: ALBUMIN 2.6 g/dL (3.4-5.0); CALCIUM 7.1 mg/dL (8.5-10.1); CREATININE 1.7 mg/dL (0.7-1.3); POTASSIUM 3.4 mmol/L (3.5-5.1); TOTAL BILIRUBIN 0.3 mg/dL (<0.1-1.0); TOTAL PROTEIN 6.3 g/dL (6.4-8.2)
[2019-04-09 11:30] VITALS: BP 102/55
--- NOTE | 2019-04-09 15:17 | NUR ---
No weekend dc anticipated. [facility] and [facility] updated. Will encourage family to tour both over the weekend. They will need to renew ins auth on Friday once dc date is indicated.
--- NOTE | 2019-04-09 15:45 | NUR ---
LEFT WITH MARIELY IN ADM AT [facility] THAT PT KHANH. ALANNA FRIDAY TO SUBMIT FOR AUTH.DCP TO FOLLOW.
[2019-04-09 16:20] VITALS: BP 120/72
--- NOTE | 2019-04-09 16:53 | NUR ---
ASSUMED CARE AT 0700, SHIFT ASSESSMENT DONE, MEDS GIVEN, VSS. REPORTED PAIN, PRN PAIN MEDS GIVEN. DENIES NAUSEA. 3 SOFT BOWEL MOVEMENT TODAY, STOOL CAME BACK POSITIVE FOR CDIFF, STARTED ON ORAL VANCOMYCIN. POTTAISUM REPLACEMENT IN PLACE. RECEIVING IV ANTIBIOTICS AND FLUIDS. WILL CONTINUE TO ASSESS AND ASSIST WITH ADLs NEEDED.
[2019-04-09 20:29] VITALS: BP 121/60
[2019-04-10 04:00] VITALS: BP 129/71
--- NOTE | 2019-04-10 05:12 | NUR ---
RECEIVED PT'S CARE AT 1920; PT. ON BED; AWAKE; RELATIVE AT THE BED SIDE; ST. NEED TO USE THE BED SIDE COMMODE; ABLE TO STAND UP AND TRANSFER TO THE BED SIDE COMMODE WITH TWO PEOPLE ASSISTANCE; PT. NOT ABLE TO STAND UP STRAIGHT; DIFFICULT TO TURN TO TRANSFER TO BED SIDE COMMODE; DURING ASSESSMENT C/O R. LOWER ABD. PAIN; PO PRN PAIN MEDICATION GIVEN; PAIN RE-ASSESSMENT PT. ST. NOT HAVING PAIN; HAD TWO LARGE DARK LIQUID STOOL AND ONE DARK LIQUID SMALL; DAUGHTER AT THE BED SIDE; REQUEST PRN SPAMS MEDICATION; GIVEN; TEMPERATURE BELOW 100 THROUGH THE NIGHT; PT. NOT ABLE TO REST UNTIL AFTER 0500; ASSESSMENT CHARGED; FOLLOWING POC; WILL KEEP MONITOR; WILL PASS ON REPORT.
[2019-04-10 05:23] LABS: HEMATOCRIT 21.5 % (42.0-52.0); HEMOGLOBIN 7.1 gm/dL (14.0-18.0); MCH 28.9 pg (26.0-34.0); MCV 87.5 fL (80.0-100.0); RBC 2.45 mil/uL (4.50-6.00); RDW 15.1 % (10.5-14.5); WBC 12.6 thou/uL (4.0-11.0)
[2019-04-10 05:34] LABS: ALBUMIN 2.3 g/dL (3.4-5.0); CALCIUM 6.4 mg/dL (8.5-10.1); CREATININE 1.4 mg/dL (0.7-1.3)
--- NOTE | 2019-04-10 07:23 | HC ---
[facility] [place] [address] CONSULTATION Name: DIANA HARRIS Room #: 213-P [facility] IN .R.#: [id number] Admission: 04/03/19 ������������������ Attend Phys: Henrry Dinh MD Discharge: ������������������ Date of : 34 Report #: [id number] THIS REPORT FOR: //name// CC: FAM unknown Henrry Dinh REASON FOR CONSULTATION: Acute kidney injury. REASON FOR PRESENTATION: Post fall. HISTORY OF PRESENT ILLNESS: An 84-year-old with past medical history of prostate cancer. No known previous kidney problems. He had a witnessed fall and presented to the hospital on 04/04/2019 with normal kidney function. He is currently receiving hormonal therapy for his prostate cancer. He is not aware of any previous kidney problems. In fact, numbers on his presentation revealed that he has normal kidney function; however, the patient's creatinine has gone up to 1.6 and I am being consulted to manage his acute kidney injury. It does look like that he had issues with hypotension and received Toradol. PAST MEDICAL HISTORY: 1. Hypertension. 2. Depression. 3. Hyperlipidemia. 4. Alzheimer. 5. Cardiac catheterization with coronary artery disease. 6. Tonsillectomy. 7. Prostate cancer. 8. Rib fractures. 9. Anemia. 10. Aortic valve replacement. 11. Post pacemaker insertion. FAMILY HISTORY: Mother had CVA. SOCIAL HISTORY: Denies drug or alcohol abuse. Lives with his family. MEDICATIONS: 1. Omeprazole. 2. Atorvastatin. 3. Aspirin. 4. Flomax. 5. Lupron shots. ALLERGIES: PENICILLIN. REVIEW OF SYSTEMS: GENERAL: Significant for weakness. [facility] [address] [place] [address] CONSULTATION Name: INDERDOMINGODIANA D Room #: 213-P [facility] IN [facility].#: [id number] Admission: 04/03/19 ������������������ Attend Phys: Henrry Dinh MD Discharge: ������������������ Date of : 34 Report #: [id number] CARDIOVASCULAR: No chest pain or palpitation. PULMONARY: No cough or hemoptysis. GASTROINTESTINAL: No nausea or vomiting. GENITOURINARY: No frequency, no urgency. Louis catheter is in. PHYSICAL EXAMINATION: VITAL SIGNS: He is febrile, temperature 39.2. Blood pressure was 110/58. HEAD AND NECK: No jugular venous distention, no bruit, no thyromegaly. CHEST: Decreased air entry bilaterally. CARDIOVASCULAR: No rub. ABDOMEN: Soft with slight suprapubic tenderness. LOWER EXTREMITIES: No edema. LABORATORY DATA: Reviewed. Hemoglobin is 7.6. BUN is 38, creatinine is 2, sodium is 133. Iron is 8. ASSESSMENT AND IMPRESSION: 1. Acute kidney injury due to nonsteroidal anti-inflammatory medications. 2. Anemia. 3. Hypertension. 4. Coronary artery disease. 5. Head injury. PLAN: 1. Renal: His acute kidney injury is well explained by the hypotension and Toradol. Expect this to fully recover. This might be exacerbated by his current urinary tract infection. 2. UTI: Continue IV fluid. 3. No further NSAIDs. 4. We will continue to follow along. ��������������������������������������������� <ELECTRONICALLY SIGNED> ���������������������������������������� By: Johanna Chapman MD ��������������������������������������������� 04/10/19 0723 1104 1902 Johanna Chapman MD /nt
[2019-04-10 07:45] VITALS: BP 122/67
[2019-04-10 11:30] VITALS: BP 119/61
--- NOTE | 2019-04-10 11:41 | NUR ---
ASSUMED CARE AT SHIFT CHANGE, PATIENT IS CONFUSED AND HAD MULTIPLE ATTEMPTES TO GET OUT OF THE BED. PATIENT MOVED TO RM 204, CLOSE TO NURSING STATION FOR CLOSE OBSERVATION AND TO PREVENT HIM FROM FALLING. VSS AFEBRILE AND VPACED ON THE MONITOR. KEEGANLEY ROUNDED AND WILL CONTNUE WITH POC.
[2019-04-10 16:20] VITALS: BP 105/67
[2019-04-10 20:00] VITALS: BP 102/57
[2019-04-11] VITALS (7 sets, daily range): BP systolic 128–144; BP diastolic 55–78
[2019-04-11 05:25] LABS: ALBUMIN 2.2 g/dL (3.4-5.0); CALCIUM 6.9 mg/dL (8.5-10.1); CREATININE 1.2 mg/dL (0.7-1.3); PHOSPHORUS 1.5 mg/dL (2.5-4.9)
--- NOTE | 2019-04-11 05:30 | NUR ---
ASSUMED PT'S CARE AT 1900; RELATIVES AT THE BED SIDE; PT. SLEEPING; DURING ASSESSMENT ST. NO PAIN; RESTING WITH EYES CLOSED; TEMPERATURA WNL; THORUGH THE NIGHT PT. HAD 3 DEBBIE BMs; C/O LOWER ABDOMINAL PAIN WHILE HAVING BM; EARLY ON THE NIGHT PRN PAIN MEDICATION GIVEN; ABLE TO REST THROUGH THE NIGHT EYES CLOSED; TURNED Q2H; WHEEZING OVER R & L UPPER LUNGS; COUGHINH; NO ABLE TO BRING SECRETIONS OUT; ST. "I CAN'T; ASSESSMENT CHARGED; FOLLOWING POC; WILL PASS ON REPORT.
[2019-04-11 05:36] LABS: POTASSIUM 3.8 mmol/L (3.5-5.1)
[2019-04-11 08:45] LABS: CALCIUM 7.3 mg/dL (8.5-10.1); CREATININE 1.3 mg/dL (0.7-1.3); MAGNESIUM 2.1 mg/dL (1.8-2.4); POTASSIUM 3.3 mmol/L (3.5-5.1)
[2019-04-11 08:49] LABS: HEMATOCRIT 23.3 % (42.0-52.0); HEMOGLOBIN 7.5 gm/dL (14.0-18.0); MCH 28.4 pg (26.0-34.0); MCHC 32.2 g/dL (28.0-37.0); MCV 88.1 fL (80.0-100.0); RBC 2.64 mil/uL (4.50-6.00); RDW 14.9 % (10.5-14.5); WBC 13.9 thou/uL (4.0-11.0)
--- NOTE | 2019-04-11 18:07 | NUR ---
ASSUMED CARE AT SHIFT CHANGE, ALERT AND ORIENTED TO SELF AND FAMILY. VPACED ON THE MONITOR, AND TEMP 100.6 THIS MORNING. VSS AT NOUN AND 1600. CONFUSED TO SITUATION AND PLACE, FAMILY AT BEDSIDE. C/O PAIN MEDICATED NEEDED. PROGESSING TOWARD GOALS AND WILL CONTINUE WITH POC.
[2019-04-12] VITALS (8 sets, daily range): BP systolic 113–156; BP diastolic 66–81
--- NOTE | 2019-04-12 01:49 | NUR ---
PATIENTS CARES WERE ASSUMED AT SHIFT CHANGE. PATIENT WAS ASSESSED AND MEDS WERE PASSED. DURING REPORT WHILE IN HIS ROOM PATIENT HAS AN EXSPLOSIVE DIARRHEA. AFTER REPORT WAS FINISHED THE PATIENT WAS WASHED AND FRESH LINEN WAS PUT ON THE BED. 3 RAILS WERE UP AND ALARM WAS ON. PATIENTS GRANDSON WAS AT THE BEDSIDE
--- NOTE | 2019-04-12 01:59 | NUR ---
AT 2044 A NURSE CAME TO ROOM 218 AND STATED THAT THIS PATIENT WAS FOUND ON THE FLOOR. NO GRANDSON AT THE BEDSIDE 3 RAILS WERE STILL UP. FOLLEY STILL IN PLACE. IV LINE WAS NOT DISRUPTED. URSZULA SIDHU EFRAÍN WAS CALLED AT 1107 PORTABLE XRAY OF HIS LEFT SHOUDER IN THE MORNING PER FAMILY REQUEST FAMILY/ DAUGHTER AT THE BEDSIDE FOR THE NIGHT. VS POST EPISODE: TEMP 99.2,HEARTRATE WAS 105,B/P 141/71,O2 SAT 98% 3L N.C. HOUSE SUPERVISER CALLED AT 2120 PATIENT WAS GIVEN CYCLOBENZAPRIN, HYDROCMORPHONE AND TRAMADOL AT APPROX 2200. PATIENT HAS BEEN SLEEPING SINCE ABOUT 1030. WILL PASS IN MORNING REPORT TO REQUEST SOMETHING FOR AXNITY IN HOPE TO CALM HIS AGGATATION AROUND SHIFT CHANGE
[2019-04-12 05:43] LABS: HEMATOCRIT 20.2 % (42.0-52.0); HEMOGLOBIN 6.8 gm/dL (14.0-18.0); MCH 29.3 pg (26.0-34.0); MCHC 33.6 g/dL (28.0-37.0); MCV 87.3 fL (80.0-100.0); RBC 2.31 mil/uL (4.50-6.00); RDW 15.3 % (10.5-14.5); WBC 10.9 thou/uL (4.0-11.0)
[2019-04-12 05:48] LABS: CALCIUM 6.9 mg/dL (8.5-10.1); POTASSIUM 3.8 mmol/L (3.5-5.1)
[2019-04-12 06:00] LABS: ALBUMIN 2.1 g/dL (3.4-5.0); DIRECT BILIRUBIN 0.1 mg/dL (<0.1-0.3); TOTAL BILIRUBIN 0.2 mg/dL (<0.1-1.0); TOTAL PROTEIN 4.7 g/dL (6.4-8.2)
--- NOTE | 2019-04-12 16:43 | NUR ---
Henrik Haro cont to try to obtain auth for post acute care.
--- NOTE | 2019-04-12 18:30 | NUR ---
VSS REMAINS AV V PACED 100%, REMAINS ALERT AND ORINTED TO NAME, FOLLOWS COMMANDS. LUNGS WITH INTERMITTENT WHEEZES, MD AWARE, IS ORDERED AND PT RAISES 500-1000, ENCOURAGED. O2 SAT 1L IS 93-96%, PT STILL HAVING LOOSE STOOLS, BYERS INTACT DRAINING QS. PT GIVEN 1 UNIT BLOOD TODAY FOR HGB 6.8, TOLERATED WELL. WILL CONTINUE TO MONITER AND CARE FOR PTPER PLAN OF CARE
--- NOTE | 2019-04-13 03:04 | NUR ---
PATIENTS CARES WERE ASSUMED AT SHIFT CHANGE. PATIENT WAS ASSESSED AND MEDS WERE PASSED. PATIENT WAS MUCH MORE CALMER THIS SHIFT THEN LAST SHIFT. CALL TO GET RESPIRATORY TREATMENTS DUE TO PATIENT DISPLAYING LABORED BREATHING. HOURLY ROUNDING WAS DONE. BED IS IN LOW AND LOCKED POSITION. HE BED ALARM IS SET ON THE MIDDLE SETTING.
[2019-04-13 03:42] LABS: CALCIUM 7.2 mg/dL (8.5-10.1); POTASSIUM 3.6 mmol/L (3.5-5.1)
[2019-04-13 04:39] LABS: HEMATOCRIT 23.6 % (42.0-52.0); HEMOGLOBIN 7.7 gm/dL (14.0-18.0); MCH 28.5 pg (26.0-34.0); MCHC 32.6 g/dL (28.0-37.0); MCV 87.2 fL (80.0-100.0); RBC 2.7 mil/uL (4.50-6.00); RDW 15.3 % (10.5-14.5); WBC 11.5 thou/uL (4.0-11.0)
[2019-04-13 05:31] VITALS: BP 148/93
[2019-04-13 07:30] VITALS: BP 145/81
[2019-04-13 11:30] VITALS: BP 136/76
[2019-04-13 15:45] VITALS: BP 144/75
--- NOTE | 2019-04-13 18:35 | NUR ---
ASSUMED CARE OF PT AT SHIFT CHANGE. ASSESSMENTS CHARTED. MEDS GIVEN PER JAN. PT ALERT TO SELF ONLY, PLEASANTLY CONFUSED. VSS, C/O PAIN IN GROIN AREAS-MANAGED WITH PO PAIN MEDS. PT UP WITH PHYSICAL THERAPY TODAY, TOLERATED VERY WELL. OT WORKED WITH PT WELL. PT HIGH FALL RISK, BED ALARM AND CHAIR ALARMS ON DURING DAY, FAMILY AT BEDSIDE THROUGHOUT DAY. APPETITE FAIR, ENCOURAGED TO EAT WITH MEALS. PT CONTINUES TO HAVE LOOSE STOOLS X2 TODAY. PT CURRENTLY RESTING IN BED WITH FAMILY IN ROOM. NO NEW NEEDS AT THIS TIME. WILL CONTINUE TO MONITOR.
--- NOTE | 2019-04-14 02:58 | NUR ---
ASSUMED PT'S CARE AT 1930; PT. ON BED WATCHING TV; RELATIVES AT THE BED SIDE; DAUGHTER ST. FATHER HAS BEING C/O LOWER ABDOMINAL PAIN; PRN PAIN MEDICATION WAS GIVEN AT 1830; AND DAUGTHER EDUCATED ABOUT THE TIME PO PAIN MEDICATION MIGHT HAVE EFFECT & NURSE WILL RE-ASSESS PT'S PAIN ON 30-45MIN; ST. UNDERSTANDING; DURING ASSESSMENT PT. ST. HAVING ABDOMINAL PAIN 6/10; PRN IV PAIN MEDICATION GIVEN; PT. ALERT TO PERSON; DAUGHTER REQUESTED PRN BREATHING TREATMENT; RT. NOTIFIED; SWOLLEN NOTICED OVER BUE & BLE; LUNGS SOUNDS HAVE WHEEZINGS SOUNDS; PT. COOPERATIVE; CALM DURING ASSESSMENT; THROUGH THE NIGHT ABLE TO REST WITH EYES CLOSE; TURN Q2H; HEELS ELEVATED; HR BTW 80-100'S; WILL KEEP MONITORING; ASSESSMENT CHARGED; FOLLOWING POC; WILL PASS ON REPORT.
[2019-04-14 03:16] LABS: HEMATOCRIT 22.1 % (42.0-52.0); HEMOGLOBIN 7.5 gm/dL (14.0-18.0); MCH 29.5 pg (26.0-34.0); MCV 86.6 fL (80.0-100.0); RBC 2.55 mil/uL (4.50-6.00); RDW 14.9 % (10.5-14.5); WBC 10.1 thou/uL (4.0-11.0)
[2019-04-14 03:20] LABS: CALCIUM 7.1 mg/dL (8.5-10.1); MAGNESIUM 1.8 mg/dL (1.8-2.4); POTASSIUM 3.1 mmol/L (3.5-5.1)
[2019-04-14 05:29] VITALS: BP 153/81
[2019-04-14 07:31] VITALS: BP 147/78
[2019-04-14 11:22] VITALS: BP 145/83
[2019-04-14] MEDS ORDERED: K-DUR 20 MEQ T20 MEQ PO (12:56)
[2019-04-14] MEDS ORDERED: FLORANEX GRANU1 EACH PO (12:56)
[2019-04-14] MEDS ORDERED: LEVAQUIN 500 M500 M1 PO (12:56)
[2019-04-14] MEDS ORDERED: ARICEPT10 M1 PO (12:56)
[2019-04-14] MEDS ORDERED: METOPROLOL SUCC50 MG PO (12:56)
[2019-04-14] MEDS ORDERED: STOOL SOFTENER100 MG PO (12:56)
[2019-04-14] MEDS ORDERED: FLOMAX0.4 MG PO (12:56)
[2019-04-14] MEDS ORDERED: ALBUTEROL2.5 MG/0.5 INH (12:56)
[2019-04-14] MEDS ORDERED: VITAMIN D2000 UNIT PO (12:56)
[2019-04-14] MEDS ORDERED: MELATONIN5 M1 PO (12:56)
[2019-04-14] MEDS ORDERED: IRON325 PO (12:56)
[2019-04-14] MEDS ORDERED: PRILOSEC 20 MG20 MG PO (12:56)
[2019-04-14] MEDS ORDERED: FIRVANQ50 MG/1 ML PO (12:56)
--- NOTE | 2019-04-14 13:43 | NUR ---
PT DISCHARGING TODAY TO [facility] FAXED DC ORDERS/SUMMARY TO FACILITY SPOKE WITH MARIELY IN ADM SHE RECEIVED DC ORDER AND ARRANGED TRANSPORT VIA [facility] FOR 1400 TODAY. PT'S FAMILY NOTIFIED PER DERIK. UNIT NOTIFIED AND TIME OF TRANSPORT AND CHART COPY PER US. RN TO CALL REPORT TO [phone].
--- NOTE | 2019-04-14 15:06 | NUR ---
rec auth from [facility] for skilled care. Discussed with patient post acute care. Patient agreeable, family at bedside and agreeable for dc. [facility] for 1400. Chart copied, transfer forms faxed. RN called report.
== END 2019-04-14 14:21 | DRG 871 ==
LOC: ER 18:41 → 4E 22:29 → EROBS 22:29 → 4E 23:24 → 2N 04-08 00:38
PROVIDERS: Hospitalist; Internal Medicine; Internal Medicine Geriatric Medicine; Nurse Practitioner Acute Care; Specialist; Student in an Organized Health Care Education/Training Program; ADMIT Family Medicine
PROC: 30233N1 Transfusion of Nonautologous Red Blood Cells into Peripheral Vein, Percutaneous Approach (ICD-10-PCS; principal; 2019-04-12)
DX: A41.9 Sepsis, unspecified organism (principal); G92 Toxic encephalopathy; N17.9 Acute kidney failure, unspecified; N39.0 Urinary tract infection, site not specified; A04.72 Enterocolitis due to Clostridium difficile, not specified as recurrent; E46 Unspecified protein-calorie malnutrition; Z85.46 Personal history of malignant neoplasm of prostate; D50.9 Iron deficiency anemia, unspecified; M19.90 Unspecified osteoarthritis, unspecified site; F32.9 Major depressive disorder, single episode, unspecified; E78.00 Pure hypercholesterolemia, unspecified; S09.90XA Unspecified injury of head, initial encounter; G30.9 Alzheimer's disease, unspecified; F02.80 Dementia in other diseases classified elsewhere, unspecified severity, without behavioral disturbance, psychotic disturbance, mood disturbance, and anxiety; I25.10 Atherosclerotic heart disease of native coronary artery without angina pectoris; S01.91XA Laceration without foreign body of unspecified part of head, initial encounter; B95.2 Enterococcus as the cause of diseases classified elsewhere; I12.9 Hypertensive chronic kidney disease with stage 1 through stage 4 chronic kidney disease, or unspecified chronic kidney disease; N40.0 Benign prostatic hyperplasia without lower urinary tract symptoms; N18.3 Chronic kidney disease, stage 3 (moderate); Z96.659 Presence of unspecified artificial knee joint; E87.6 Hypokalemia; I95.9 Hypotension, unspecified; B95.5 Unspecified streptococcus as the cause of diseases classified elsewhere; Z95.5 Presence of coronary angioplasty implant and graft; Z68.25 Body mass index [BMI] 25.0-25.9, adult; Z87.81 Personal history of (healed) traumatic fracture; Z95.2 Presence of prosthetic heart valve; Z88.0 Allergy status to penicillin; Z87.891 Personal history of nicotine dependence; Z95.0 Presence of cardiac pacemaker; Z79.1 Long term (current) use of non-steroidal anti-inflammatories (NSAID); Z90.49 Acquired absence of other specified parts of digestive tract; Z82.3 Family history of stroke; Z79.82 Long term (current) use of aspirin; Z79.899 Other long term (current) drug therapy; W18.39XA Other fall on same level, initial encounter; Y93.89 Activity, other specified; Y92.89 Other specified places as the place of occurrence of the external cause; Y99.8 Other external cause status
CPT/HCPCS: 10081; 10084